=== PATIENT | female | born 1965 | race Caucasian/White ===

== ENCOUNTER 2020-01-19 19:28 | Outpatient (CLI) | payer SELFPAY ==
[2020-01-19 19:34] LABS: Basophils % 0.4 %; Eosinophils # 0.1 10^3/uL (0.0-0.8); Eosinophils % 1.7 %; Hematocrit 42.2 % (37.0-47.0); Hemoglobin 13.8 g/dL (11.5-15.3); Lymphocytes # 2.3 10^3/uL (0.8-4.8); Lymphocytes % 32.5 %; Mean Corpuscular HGB Conc 32.7 g/dL (30.0-36.0); Mean Corpuscular Hemoglobin 29.3 pg (28.0-34.0); Mean Corpuscular Volume 89.6 fL (81-99); Mean Platelet Volume 12.7 fL (7.4-10.4); Monocytes # 0.6 10^3/uL (0.2-0.9); Monocytes % 8.3 %; Neutrophils # 4.04 10^3/uL (1.8-7.7); Neutrophils % 56.8 %; Nucleated Red Blood Cells % 0 %; Platelet Count 58 10^3/cmm (130-400); Red Blood Count 4.71 10^6/uL (4.1-5.3); White Blood Count 7.1 10^3/uL (4.0-10.0)
[2020-01-19 20:25] LABS: Alanine Aminotransferase 24 U/L (0-33); Albumin Level 4.7 g/dL (3.5-5.2); Alkaline Phosphatase 75 IU/L (35-105); Anion Gap 11.4 (5-19); Aspartate Amino Transferase 21 U/L (0-32); Blood Urea Nitrogen 16 mg/dL (6-20); Calcium 9.3 mg/dL (8.5-10.5); Carbon Dioxide 29 mmol/L (22-29); Chloride 104 mmol/L (98-107); Globulin 2.4 g/dL (1.3-4.6); Glomerular Filtration Rate 87.5 mL/min (90-130); Glucose 108 mg/dL (65-115); Osmolality Calculated 289 mOsm/kg (285-295); Potassium 3.4 mmol/L (3.5-5.1); Sodium 141 mmol/L (136-145); Total Bilirubin 0.6 mg/dL (0.15-1.2); Total Protein 7.1 g/dL (6.6-8.7)
== END 2020-01-19 19:29 | disposition home or self-care (01) ==
LOC: LAB 19:30
PROVIDERS: Visit Provider General Practice
DX: D69.3 Immune thrombocytopenic purpura (principal)
CPT/HCPCS: 80053; 85025

== ENCOUNTER → 2020-04-10 14:13 | Outpatient (BNVA) | payer SELFPAY | PROVIDERS: Visit Provider Obstetrics & Gynecology | DX: R10.2 Pelvic and perineal pain (principal); R10.32 Left lower quadrant pain | CPT/HCPCS: 76830 ==

== ENCOUNTER → 2020-04-27 08:42 | Outpatient (BNVA) | payer SELFPAY | PROVIDERS: PCP Registered Nurse; Visit Provider Obstetrics & Gynecology | DX: Z20.828 Contact with and (suspected) exposure to other viral communicable diseases (principal); R10.2 Pelvic and perineal pain | CPT/HCPCS: 87635 ==

== ENCOUNTER 2020-05-02 08:05 | Day surgery (SDC) | payer SELFPAY ==
[2020-04-30 10:48] VITALS: BMI 28.0
--- NOTE | 2020-04-30 11:35 | ANES.PREANE2 ---
Pre-Anesthetic Assessment Pre-Anesthetic Assessment: Height/Weight: Height 1.75 m Weight 86.183 kg Preop Diagnosis: Chronic pelvic pain Proposed Procedure: Operation Date: 05/02/20 11:20 Proposed Procedures p Laparoscopy Diagnostic 24005 R10.2(Not Applicable) - Joe Manley MD Familial anesthetic complications: PONV Social: Social History: No alcohol and No tobacco Exam: Pre-Anes Outpt Exam: alert, oriented x 3, clear to auscultation bilaterally and regular rate & rhythm Airway: Cervical ROM: WNL MP: 1 Dentition: Full Anesthetic Plan: ASA status: 1 Anesthesia: General Risk of > 500 ml blood loss (7ml/kg in children): No PFSH Anesthesia PFSH: Medical History (Updated 04/25/20 @ 15:52 by Joe Manley MD) Chronic pelvic pain in female Well woman exam with routine gynecological exam Family History Mother Diabetes Breast cancer, Onset Age: 60 Hyperlipidemia Hypertension Denies family history of Colon cancer Ovarian cancer Clotting disorder Anesthesia complication Bleeding disorder Uterine cancer Thyroid condition Stroke Social History Smoking and tobacco status: former smoker Quit status (tobacco): has quit using tobacco Year quit tobacco: 2001 Alcohol intake: never Data Anesthesia Cardiac Studies: No Data to Display
[2020-04-30 11:46] LABS: Basophils % 0.5 %; Eosinophils # 0.1 10^3/uL (0.0-0.8); Eosinophils % 1.7 %; Hematocrit 44.5 % (37.0-47.0); Lymphocytes # 1.9 10^3/uL (0.8-4.8); Lymphocytes % 33.3 %; Mean Corpuscular HGB Conc 33.7 g/dL (30.0-36.0); Mean Corpuscular Hemoglobin 29.7 pg (28.0-34.0); Mean Corpuscular Volume 88.1 fL (81-99); Mean Platelet Volume 12.9 fL (7.4-10.4); Monocytes # 0.4 10^3/uL (0.2-0.9); Monocytes % 7.3 %; Neutrophils % 57.2 %; Nucleated Red Blood Cells % 0 %; Platelet Count 78 10^3/cmm (130-400); Red Blood Count 5.05 10^6/uL (4.1-5.3); Red Cell Distribution Width 11.8 % (12.1-15.1); White Blood Count 5.8 10^3/uL (4.0-10.0)
[2020-04-30 11:54] LABS: Add Urine Microscopic? YES; Bilirubin Urine Neg (Negative); Blood Urine Neg (Negative); Glucose Urine UA Norm (Normal); Ketones Urine Negative (Negative); Leukocyte Esterase Urine Negative (Negative); Nitrate Urine Negative (Negative); Protein Urine Neg (Negative); Urine Appearance SL Hazy (CLEAR); Urine Color Yellow (Yellow); Urobilinogen Urine Norm (Negative); pH Urine 8 (5-7)
[2020-04-30 11:55] LABS: OR HCG Qualitative Urine Negative (Negative)
[2020-04-30 12:00] LABS: Alanine Aminotransferase 24 U/L (0-33); Albumin Level 4.6 g/dL (3.5-5.2); Alkaline Phosphatase 78 IU/L (35-105); Anion Gap 14.6 (5-19); Aspartate Amino Transferase 18 U/L (0-32); Blood Urea Nitrogen 11 mg/dL (6-20); Calcium 9.5 mg/dL (8.5-10.5); Carbon Dioxide 28 mmol/L (22-29); Chloride 103 mmol/L (98-107); Globulin 2.4 g/dL (1.3-4.6); Glomerular Filtration Rate 104.6 mL/min (90-130); Glucose 98 mg/dL (65-115); Osmolality Calculated 293 mOsm/kg (285-295); Potassium 3.6 mmol/L (3.5-5.1); Sodium 142 mmol/L (136-145); Total Bilirubin 0.7 mg/dL (0.15-1.2)
[2020-04-30 12:03] LABS: Add Urine Culture? No; Amorphous Sediment Urine 2+ /hpf; Bacteria Urine 3+ /hpf; Sulfosalicylic Acid Urine Negative (Negative)
[2020-05-02] VITALS (7 sets, daily range): BP systolic 123–142; BP diastolic 66–91; PULSE 50–80; RESP 16–18; TEMP 36.2–36.8; O2SAT 97–100
--- NOTE | 2020-05-02 08:26 | P.ANESUD_ITS ---
Pre-Anesthetic Update Pre-Anesthetic Assessment: Date of Surgery/Procedure: 05/02/20 Preop Bell gnosis: Chronic pelvic pain Proposed Procedure: Operation Date: 05/02/20 09:55 Proposed Procedures p Laparoscopy Diagnostic 81252 R10.2(Not Applicable) - Joe Manley MD Any changes to Pre-Anesthetic Assessment?: No Last Intake: Intake Last Liquid Date 05/01/20 Last Liquid Time 21:00 Last Solid Date 05/01/20 Last Solid Time 21:00 Labs Last 48hrs: Laboratory Results - last 48 hr 04/30/20 04/30/20 04/30/20 10:45 10:45 11:15 WBC 5.8 RBC 5.05 Hgb 15.0 Hct 44.5 MCV 88.1 MCH 29.7 MCHC 33.7 RDW 11.8 L Plt Count 78 L MPV 12.9 H Neut % (Auto) 57.2 Lymph % (Auto) 33.3 [place] % (Auto) 7.3 Eos % (Auto) 1.7 Baso % (Auto) 0.5 Neut # (Auto) 3.30 Lymph # (Auto) 1.9 [place] # (Auto) 0.4 Eos # (Auto) 0.1 Baso # (Auto) 0.0 Nucleated RBC % (a uto) 0 Nucleated RBCs # 0.0 Sodium Potassium Chloride Carbon Dioxide Anion Gap BUN Creatinine GFR Calculation Glucose Calculated Osmolal ity Calcium Total Bilirubin AST ALT Alkaline Phosphata se Total Protein Albumin Globulin Urine Color Yellow Urine Appearance Sl hazy Urine pH 8 H Ur Specific Gravit y 1.010 Urine Protein Neg Urine Glucose (UA) Norm Urine Ketones Negative Urine Blood Neg Urine Nitrate Negative Urine Bilirubin Neg Prot Sulfosalicyli c Acd Negative Urine Urobilinogen Norm Ur Leukocyte Astrid ase Negative Urine RBC None Urine WBC None Ur Squamous Epith Cells None Amorphous Sediment 2+ Urine Bacteria 3+ H Urine HCG, Qual Negative Blood Type Rho(D) Type Antibody Screen 04/30/20 04/30/20 11:15 11:15 WBC RBC Hgb Hct MCV MCH MCHC RDW Plt Count MPV Neut % (Auto) Lymph % (Auto) [place] % (Auto) Eos % (Auto) Baso % (Auto) Neut # (Auto) Lymph # (Auto) [place] # (Auto) Eos # (Auto) Baso # (Auto) Nucleated RBC % (a uto) Nucleated RBCs # Sodium 142 Potassium 3.6 Chloride 103 Carbon Dioxide 28 Anion Gap 14.6 BUN 11 Creatinine 0.6 GFR Calculation 104.6 Glucose 98 Calculated Osmolal ity 293 Calcium 9.5 Total Bilirubin 0.7 AST 18 ALT 24 Alkaline Phosphata se 78 Total Protein 7.0 Albumin 4.6 Globulin 2.4 Urine Color Urine Appearance Urine pH Ur Specific Gravit y Urine Protein Urine Glucose (UA) Urine Ketones Urine Blood Urine Nitrate Urine Bilirubin Prot Sulfosalicyli c Acd Urine Urobilinogen Ur Leukocyte Astrid ase Urine RBC Urine WBC Ur Squamous Epith Cells Amorphous Sediment Urine Bacteria Urine HCG, Qual Blood Type A Positive Rho(D) Type Positive Antibody Screen Negative Vitals: Temperature 98.3 F 05/02/20 08:21 Temperature Source Temporal Artery S can 05/02/20 08:21 Pulse Rate 62 05/02/20 08:21 Respiratory Rate 18 05/02/20 08:21 Blood Pressure 139/73 05/02/20 08:21 Blood Pressure Anu n 95 05/02/20 08:21 Pulse Oximetry 100 05/02/20 08:21 Oxygen Delivery Me thod 05/02/20 08:21 Exam: Pre-Anes Outpt Exam: alert, oriented x 3, clear to auscultation bilaterally and regular rate & rhythm Cardiac Studies: No Data to Display
[2020-05-02] MEDS: sodium chloride 0.9% 1,000 ML 30 ML IV (08:52)
--- NOTE | 2020-05-02 10:26 | P.OP_ITS ---
Operative Report Date of procedure: May 02, 2020 Pre-op Diagnosis: Chronic pelvic pain Post-op diagnosis: same Post-op Findings: Normal pelvic organs Procedure Done: Diagnostic laparoscopy Surgeon: Joe Karimi MD Anesthesia: General Estimated blood loss (mL): 5 Urine output (mL): 50 Condition: stable Disposition: PACU Brief History: 54-year-old female with chronic pelvic pain Procedure: DESCRIPTION OF PROCEDURE: After informed consent, the patient was taken to the operating room where general anesthesia was administered. The patient was examined under anesthesia and found to have a normal uterus with normal adnexa. She was placed in the dorsal lithotomy position and prepped and draped in sterile fashion. Pre- Procedure Time-Out verifying the correct patient identity, correct procedure verified with consent, correct site and side, correct patient position, availability of correct implants and any special equipment or requirements was performed and acknowledge by the OR team. A weighted speculum was placed in the vagina, and the anterior lip of cervix was grasped with the single toothed tenaculum. A uterine manipulator was advanced into the endocervical. Tenaculum was removed after uterine manipulator was secured. The speculum was removed from the vagina. An intraumbilical incision was made with a scalpel. While tenting up on the abdomen, a Verres needle with sleeve was admitted into the intra-abdominal cavity. A saline drop test was performed and noted to be within normal limits. Pneumoperitoneum was attained with 4 liters of carbon dioxide. The Verres needle was removed. A 5 mm trocar and sleeve were admitted into the abdomen and laparoscopic confirmation of location was achieved, A second incision was made 3 cm above the symphysis pubis, and a 5 mm trocar and sleeve were admitted into the abdomen under direct, laparoscopic visualization without complication. A survey revealed normal abdominal anatomy. The pelvic survey shows normal uterus, left and right adnexa. A 5 mm blunt probe was advanced through the second trocar sleeve, and light manipulation of ovaries and uterus to assess the posterior aspects was performed. No HARVEST CONTRACTOR pathology noted. The carbon dioxide was allowed to escape from the abdomen. The instruments were removed, and skin cover with a bandage. The instruments were removed from the vagina, and excellent hemostasis was noted. The patient tolerated the procedure well, and sponge, lap and needle count were correct times two. The patient taken to the recovery room in good condition.
--- NOTE | 2020-05-02 10:46 | W.PM.OPSUD ---
Surgery/Procedure H&P Update DATE OF PROCEDURE: May 02, 2020 DATE H&P PERFORMED: 04/23/20 H&P UPDATE INFORMATION: I have reviewed H&P completed within last 30 days, I have examined patient prior to procedure and No changes to prior documentation PREOP DIAGNOSIS: Chronic pelvic pain PLANNED PROCEDURE: Operation Date: 05/02/20 09:55 Proposed Procedures p Laparoscopy Diagnostic 93513 R10.2(Not Applicable) - Joe Manley MD
[2020-05-02] MEDS: HYDROcodone-acetaminophen 5-325 mg Tablet 1 TAB PO (11:20)
--- NOTE | 2020-05-02 18:35 | ANE.PACU2 ---
Inpatient post-anesthesia follow up: Airway intact: Yes Vital signs: Temperature 97.8 F Pulse Rate 50 Respiratory Rate 16 Blood Pressure 123/66 Pulse Oximetry 99 Oxygen Delivery Me thod Room Air Oxygen Flow Rate 8 Fraction of Inspir ed Oxygen Hydration adequate: Yes Nausea and vomiting: No Pain level: 2 Mental status: Baseline
== END 2020-05-02 12:14 | disposition home or self-care (01) ==
PROVIDERS: PCP Registered Nurse; Visit Provider Obstetrics & Gynecology
PROC: (CPT 49320; principal; 2020-05-02 09:50)
DX: R10.2 Pelvic and perineal pain (principal); Z87.891 Personal history of nicotine dependence; G89.29 Other chronic pain
CPT/HCPCS: 49320; 12345; 36415; 80053; 81001; 84703; 85025; 86850; 86900; J1100; J1885; J2250; J2270; J2405; J2704; J2710; J3010; J3370; J3490; J7030; J7050

== ENCOUNTER → 2021-02-12 14:09 | Outpatient (BNVA) | payer SELFPAY | PROVIDERS: PCP Registered Nurse; Visit Provider Registered Nurse | DX: R39.9 Unspecified symptoms and signs involving the genitourinary system (principal) | CPT/HCPCS: 81000 ==

== ENCOUNTER 2021-02-22 09:51 | Outpatient (CLI) | payer SELFPAY ==
--- NOTE | 2021-02-22 10:15 | CT_ITS ---
WS: [id number] CT ABDOMEN PELVIS TECHNIQUE: Noncontrast CT of the abdomen and pelvis with coronal and sagittal reformatted images. CLINICAL INFORMATION: N20.0 - Calculus of kidney COMPARISON: None. DLP: [address] scans at [facility] use at least one of these dose optimization techniques: automated e xposure control; mA and/or kV adjustment per patient size (includes targeted exams where dose is matc hed to clinical indication); or iterative reconstruction. FINDINGS: Lung bases are well aerated. Small esophageal hiatal hernia. Adrenal glands are normal. No hydronephr osis in either kidney. No obstructing renal or ureteral calculi. Pelvic phleboliths. A few very tiny nonobstructing left calyceal tip calculi. Noncontrast liver is normal. Normal gallbladder. Normal noncontrast spleen. Normal noncontrast pancre as. A few incidental reactive lymph nodes along the mesenteric root. Normal caliber abdominal aorta. Tiny fat-containing umbilical hernia. Tortuous sigmoid and descending left colon with interposition along the splenic flexure. Focal area o f narrowing of the sigmoid colon in the left upper quadrant near the hepatic flexure. This may be due to volvulus or internal hernia although no evidence of high-grade obstruction. No inflammatory stran ding or edema. Findings can be followed up with colonoscopy or barium enema.No evidence of high-grade small or large bowel obstruction. Recommend correlation with history of constipation or left upper q uadrant pain. No free fluid in the pelvis. No inguinal lymphadenopathy. CT/CT kidney stone 08148 IMPRESSION: 1. No obstructing renal or ureteral calculi. 2. A few tiny left calyceal tip nonobstructing calculi. 3. No hydronephrosis in either kidney. 4. Tiny esophageal hiatal hernia. 5. Tortuous sigmoid and descending left colon appears mobile and partially in terposed along the splenic flexure left upper quadrant with focal area of narro wing may be due to volvulus or internal hernia although no evidence of obstruct ion. This is of indeterminate clinical significance but can be followed up with barium enema or colonoscopy
== END 2021-02-22 09:52 | disposition home or self-care (01) ==
PROVIDERS: PCP Registered Nurse; Visit Provider Registered Nurse
DX: N20.0 Calculus of kidney (principal); K44.9 Diaphragmatic hernia without obstruction or gangrene
CPT/HCPCS: 74176

== ENCOUNTER → 2021-05-03 10:51 | Outpatient (BNVA) | payer OTHER, SELFPAY | PROVIDERS: PCP Registered Nurse; Visit Provider Surgery | DX: Z20.822 Contact with and (suspected) exposure to COVID-19 (principal); Q43.8 Other specified congenital malformations of intestine | CPT/HCPCS: 87635 ==

== ENCOUNTER 2021-05-10 08:02 | Day surgery (SDC) | payer SELFPAY ==
[2021-05-08 13:33] VITALS: BMI 25.8
--- NOTE | 2021-05-10 08:47 | P.ANESASSM_ITS ---
Pre-Anesthetic Assessment Pre-Anesthetic Assessment: Height/Weight: Height 1.75 m Weight 79.379 kg Preop Diagnosis: diagnostic Proposed Procedure: Operation Date: 05/10/21 09:45 Proposed Procedures p Colonoscopy 31574 Q43.8(Not Applicable) - Delano Ventura MD Was Beta Stephon taken within 24 hours: N/A Was Clonidine taken within 24 hours: N/A Social: Social History: No alcohol and No tobacco Exam: Pre-Anes Outpt Exam: alert, oriented x 3, clear to auscultation bilaterally and regular rate & rhythm Airway: Submandibular: WNL Cervical ROM: WNL MP: 2 Dentition: Full History/ROS: No significant history except as noted Anesthetic Plan: ASA status: 1 Anesthesia: MAC Risk of > 500 ml blood loss (7ml/kg in children): No PFSH Anesthesia PFSH: Medical History (Updated 03/12/21 @ 09:47 by Delano Ventura MD) Chronic pelvic pain in female Surgical History (Updated 03/12/21 @ 09:47 by Delano Ventura MD) H/O laparoscopy 05/02/2020- Diagnostic laparoscopy performed by Dr. Manley at [facility] History of open reduction and internal fixation (ORIF) procedure Left leg S/P tonsillectomy and adenoidectomy Family History Mother Diabetes Breast cancer, Onset Age: 60 Hyperlipidemia Hypertension Denies family history of Colon cancer Ovarian cancer Clotting disorder Anesthesia complication Bleeding disorder Uterine cancer Thyroid condition Stroke Social History Quit status (tobacco): has quit using tobacco Year quit tobacco: 2001 Alcohol intake: never Data Anesthesia Cardiac Studies: No Data to Display
[2021-05-10 08:58] VITALS: BP 124/78; PULSE 78; RESP 20; TEMP 36.3; O2SAT 98
[2021-05-10] MEDS: sodium chloride 0.9% 1,000 ML 30 ML IV (09:03)
--- NOTE | 2021-05-10 10:24 | P.HP_ITS ---
Same Day Surgery H&P Indication for Procedure/HPI DATE OF PROCEDURE: May 10, 2021 CHIEF COMPLAINT/INDICATIONFOR SURGICAL PROCEDURE: colonoscopy PREOP DIAGNOSIS: diagnostic PLANNED PROCEDRUE: Operation Date: 05/10/21 09:45 Proposed Procedures p Colonoscopy 43097 Q43.8(Not Applicable) - Delaon Ventura MD Medications/Allergies* Home Medications Medication Instructions Recorded Confirmed Type No Known Home Medications 05/10/21 05/10/21 History Allergies/Adverse Reactions Allergy/AdvReac Type Severity Reaction Status Date / Time Penicillins Allergy Intermediate rash Verified 03/12/21 09:18 Current Medications: Generic Name Dose Route Start Last Admin Trade Name Freq PRN Reason Stop Dose Admin Sodium Chloride 1,000 mls @ 30 mls/hr 05/10/21 08:15 05/10/21 09:03 Sodium Chloride 0.9% IV 05/11/21 08:14 30 mls/hr .Q24H MANUEL Administration Pertinent History/Comorbid Conditions* Medical History (Updated 03/12/21 @ 09:47 by Delano Ventura MD) Chronic pelvic pain in female Surgical History (Updated 03/12/21 @ 09:47 by Delano Ventura MD) H/O laparoscopy 05/02/2020- Diagnostic laparoscopy performed by Dr. Manley at [facility] History of open reduction and internal fixation (ORIF) procedure Left leg S/P tonsillectomy and adenoidectomy Family History (Updated 04/03/20 @ 15:36 by Aylin Welch RN) Diabetes Mother Hyperlipidemia Mother Breast cancer Mother, Onset Age: 60 Hypertension Mother Denies family history of Colon cancer Ovarian cancer Clotting disorder Anesthesia complication Bleeding disorder Uterine cancer Thyroid condition Stroke Social History Quit status (tobacco): has quit using tobacco Year quit tobacco: 2001 Alcohol intake: never Pertinent Exam Findings alert, oriented x 3 and regular rate & rhythm Recommendations Surgery/Procedure today Coding Level of Care Code 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
[2021-05-10 11:01] VITALS: BP 109/73; PULSE 82; RESP 16; TEMP 36.5; O2SAT 98
[2021-05-10 11:13] VITALS: BP 116/81; PULSE 69; RESP 18; O2SAT 97
--- NOTE | 2021-05-10 13:21 | ANE.PACU2 ---
Inpatient post-anesthesia follow up: Airway intact: Yes Vital signs: Temperature 97.7 F Pulse Rate 69 Respiratory Rate 18 Blood Pressure 116/81 Pulse Oximetry 97 Oxygen Delivery Me thod Room Air Oxygen Flow Rate Fraction of Inspir ed Oxygen Hydration adequate: Yes Nausea and vomiting: No Pain level: 1 Mental status: Baseline
== END 2021-05-10 11:22 | disposition home or self-care (01) ==
PROVIDERS: PCP Registered Nurse; Visit Provider Surgery
PROC: 0DJD8ZZ Inspection of Lower Intestinal Tract, Via Natural or Artificial Opening Endoscopic (ICD-10-PCS; CPT 45378; principal; 2021-05-10 09:45)
DX: Q43.8 Other specified congenital malformations of intestine (principal); K64.8 Other hemorrhoids; Z87.891 Personal history of nicotine dependence
CPT/HCPCS: 45378; 96360; 96361; J2704; J7030